=== PATIENT | male | born 1975 | race Caucasian/White ===

== ENCOUNTER 2024-02-14 11:46 | Day surgery (SDC) | payer OTHER ==
[~2024-02-14] VITALS: Ht 165.1 cm; Wt 69.4 kg
[2024-02-14] MEDS ORDERED: ceFAZolin Sod. 2,000 MG in DEXTROSE 5% 100 ML IV ONE (13:10)
[2024-02-14] MEDS ORDERED: PROPOFOL 200 MG/20 ML VIAL IV ONE ×2 (13:38→14:21)
[2024-02-14] MEDS ORDERED: SEVOFLURANE 250 ML BTL INH ONE (14:00)
[2024-02-14 14:01] LABS: ALBUMIN 3.4 g/dL (3.4-5.0); CALCIUM 8.2 mg/dL (8.5-10.1); CARBON DIOXIDE 24.4 mmol/L (21-32); POTASSIUM 5.4 mmol/L (3.5-5.1); TOTAL BILIRUBIN 0.2 mg/dL (0.0-1.0); TOTAL PROTEIN, SERUM 6.7 g/dL (6.4-8.2)
[2024-02-14 14:05] LABS: CREATININE 9.9 mg/dL (0.6-1.3)
[2024-02-14] MEDS ORDERED: MIDAZOLAM 2 MG/2 ML VIAL ONE (14:12)
[2024-02-14] MEDS ORDERED: fentaNYL citrate 0.05 MG/ML VIAL ONE (14:13)
[2024-02-14] MEDS ORDERED: DEXAMETHASONE 4 MG/ML VIAL ONE (14:22)
[2024-02-14] MEDS ORDERED: ONDANSETRON 4 MG/2 ML VIAL ONE (14:22)
[2024-02-14] MEDS ORDERED: NACL 0.9% 1,000 ML IV SCH (14:35)
[2024-02-14] MEDS ORDERED: fentaNYL citrate 0.05 MG/ML VIAL IVP PRN ×2 (14:35)
[2024-02-14] MEDS ORDERED: ONDANSETRON 4 MG/2 ML VIAL IVP PRN (14:35)
[2024-02-14] MEDS ORDERED: BLOOD GLUCOSE MONITORING 1 DEV DEV FS ONE (14:35)
[2024-02-14] MEDS: HYDROGEN PEROXIDE 3% 240 ML BTL TP ONE (14:55)
[2024-02-14] MEDS: ceFAZolin 2,000 MG VIAL ONE (15:00)
[2024-02-14] MEDS: BUPIVACAINE-MPF 0.25% 30 ML VIAL INJ ONE (15:00)
[2024-02-14] MEDS: LIDOCAINE 2% 1000 MG/50 ML VIAL INJ ONE (15:00)
[2024-02-14] MEDS ORDERED: ePHEDrine 50 MG/ML VIAL ONE (15:02)
== END 2024-02-14 17:15 | disposition home or self-care (01) ==
LOC: MDS 11:46 → MMU 11:51 → MDS 17:15
PROVIDERS: ATTEND Podiatrist Foot & Ankle Surgery
DX: L97.529 Non-pressure chronic ulcer of other part of left foot with unspecified severity (principal); E08.621 Diabetes mellitus due to underlying condition with foot ulcer; S98.112A Complete traumatic amputation of left great toe, initial encounter; M77.42 Metatarsalgia, left foot; I10 Essential (primary) hypertension
CPT/HCPCS: 15275; 28104; 36415; 73630; 80053; 82948; 87070; 87075; 87205; 88305; 88311; J1100; J2001; J2250; J2405; J2704; J3010; J3490; J7060